=== PATIENT | male | born 1970 | race Caucasian/White ===

== ENCOUNTER 2021-12-13 03:38 | Emergency (ER) | payer OTHER ==
[~2021-12-13 03:38] MED LIST: ZOFRAN8 MG PO
[2021-12-13 03:54] LABS: BASOPHIL 0.7 % (0-2); EOSINOPHIL 2.8 % (0-5); HCT 53.4 % (42.0-52.0); HGB 17.5 g/dl (13.2-18.0); LYMPHOCYTE 34.8 % (15-48); MCH 29.4 pg (25.0-31.0); MCHC 32.8 g/dL (32.0-36.0); MCV 89.7 fL (78.0-100.0); MONOCYTE 10.8 % (0-12); MPV 8.4 fL (6.0-9.5); NEUTROPHIL 50.1 % (41-80); NRBC 0; PLT 280 K/uL (150-400); RBC 5.95 M/uL (4.70-6.00); RDW 13.6 % (11.5-14.0)
[2021-12-13 03:55] LABS: WBC 14.8 K/uL (4.0-10.5)
[2021-12-13 04:10] LABS: ALBUMIN 3.6 g/dL (3.4-5.0); BILIRUBIN - TOTAL 0.2 mg/dL (0.2-1.0); BUN/CREAT RATIO (CALC) 26.6 RATIO; CREATININE 0.79 mg/dL (0.67-1.17); GLOBULIN (CALCULATION) 4.1 g/dL; POTASSIUM 4.3 mmol/L (3.5-5.1); TOTAL PROTEIN 7.7 g/dL (6.4-8.2)
[2021-12-13 04:27] LABS: CORONAVIRUS 2019 SARS-COV-2 NEGATIVE (NEGATIVE); INFLUENZA A NAA NEGATIVE (NEGATIVE)
== END 2021-12-13 06:20 | disposition home or self-care (01) ==
LOC: FER 03:38
PROVIDERS: Emergency Medicine
DX: R07.89 Other chest pain (principal); F17.200 Nicotine dependence, unspecified, uncomplicated; Z20.822 Contact with and (suspected) exposure to COVID-19
CPT/HCPCS: 36415; 71045; 80053; 84484; 85025; 85379; 93005; J1885; J7030; U0002